=== PATIENT | male | born 1960 | race Caucasian/White ===

== ENCOUNTER 2024-01-06 15:34 | Emergency (ER) | payer SELFPAY ==
[~2024-01-06] VITALS: Ht 172.7 cm; Wt 74.8 kg
[2024-01-06 15:42] VITALS: BP 133/110; PULSE 89; RESP 18; TEMP 98; O2SAT 98
== END 2024-01-06 15:51 | disposition home or self-care (01) ==
LOC: MED 15:34
DX: Z02.89 Encounter for other administrative examinations (principal); Z79.899 Other long term (current) drug therapy; V49.88XA Car occupant (driver) (passenger) injured in other specified transport accidents, initial encounter; Y93.89 Activity, other specified; Y92.89 Other specified places as the place of occurrence of the external cause; Y99.8 Other external cause status
CPT/HCPCS: 99283